=== PATIENT | male | born 1970 | race Caucasian/White ===

== ENCOUNTER 2017-09-14 18:29 | Observation (INO) ==
[2017-09-14] MEDS ORDERED: SALINE FLUSH 10ml SYRINGE IVF PRN (18:56)
--- NOTE | 2017-09-14 18:56 | Emergency Department Report ---
General Adult HPI - General Chief complaint: Neuro Symptoms/Deficit Stated complaint: numbness right side, dizzy Time Seen by Provider: 09/14/17 18:49 Source: patient Mode of arrival: ambulatory Limitations: no limitations - History of Present Illness HPI narrative: 47-year-old male presents to the emergency department with the chief complaints of experiencing tingling at the corner of his right mouth, right hand , and right foot. He was exercising by lifting weights when he noted onset of symptoms at approximately 1820 today. He states that his symptoms have improved in nature since onset. He does not have any further tingling of the corner of his mouth and only has tingling in his right hand and right foot which has improved. He notes a mild dull generalized headache without radiation which was gradual in onset. He has no neck pain or focal deficit. He was at the [facility] when his symptoms began. Symptoms have improved in nature since onset. No other complaints or associated symptoms. - Related Data Home Medications Medication Instructions Recorded Confirmed Multivitamin [One Daily 1 each PO DAILY 09/14/17 09/14/17 Multivitamin] Ubidecarenone/Vit E Acet [Co Q-10 1 each PO DAILY 09/14/17 09/14/17 100 mg Softgel] Allergies Allergy/AdvReac Type Severity Reaction Status Date / Time No Known Allergies Allergy Verified 09/14/17 19:24 Review of Systems Constitutional: Denies: fever, chills Eyes: Denies: eye pain, vision change ENT: Denies: ear pain, throat pain Cardiovascular: Denies: chest pain, palpitations Respiratory: Denies: cough, dyspnea Gastrointestinal: Denies: abdominal pain, nausea, vomiting, diarrhea Genitourinary: Denies: urgency, dysuria Musculoskeletal: Denies: back pain, arthralgia Integumentary: Denies: erythema, rash Neurological: Reports: headache, paresthesias. Denies: weakness, numbness Psychiatric: Denies: anxiety, depression Endocrine: Denies: polydipsia, polyuria Hematological/Lymphatic: Denies: easy bruising, lymphadenopathy Allergic/Immunologic: Denies: facial swelling, urticaria PFSH Negative. Surgical History: Orthopedic surgery Family History: Dad - CVA - Social History Smoking status: Never smoker Substance use type: does not use Alcohol intake frequency: does not drink Physical Exam - Limitations Limitations: no limitations - General General appearance: alert, in no apparent distress - Normal Exams: Head:: Normocephalic without trauma Eyes:: Pupils are PERRLA w/ EOMI, No scleral icterus, irritation, or foreign bodies noted ENMT:: No facial trauma, nasal exudates, pharyngeal erythema, or exudates are noted Dental: No fractured, loose, or missing teeth noted Neck:: Full range of motion, without adenopathy, JVD, bruits or thyromegaly Chest/Respirations:: Clear all win, with good airflow, and symmetry bilaterally Cardiovascular:: Regular rate and rhythm, without murmur or gallop, Pulses 2+ all extremities, capillary refill, <2 seconds all extremities Abdomen:: Bowel sounds positive, soft, non-tender, non-distended, no hepatosplenomegaly, masses or bruits noted Lymphatic:: No lymphadenopathy, or lymphedema noted Musculoskeletal:: No tenderness, or deformity noted, good range of motion, all extremities Integumentary:: No rashes, hives, or bruising noted, hair and nails, without abnormality Neurological:: Patient is alert (Alert and oriented x 3. CN 2-12 intact. normal strength. normal speech. normal motor. normal coordination. normal gait. absent babinski bilat. reflexes 2/4 in all ext. no focal deficit. normal neurological exam. ), and oriented, cranial nerves, motor/sensory/cerebellar, exams w/o gross deficits, to observation Psychiatric:: Patient exhibits, appropriate attention, emotion and affect Medical Decision Making - [facility] Narrative Medical decision making narrative: Labs / Imaging were discussed in detail with the patient and family and questions were answered. Patient has an unremarkable evaluation in the ED but is not comfortable being discharged home to follow up with his PCP. He is given 324mg of ASA po x 1 in the ED. His symptoms have resolved and he remains asymptomatic in the ED during his stay. Patient is discussed with Dr. Marco A Suarez who agrees to accept the patient to his service for further evaluation and treatment. Patient and family are in agreement with the current plan of management. No further orders from accepting physician who is in agreement with the current plan of management. Patient was not a candidate for TPA therapy due to a low NIH and rapidly improving to resolving symptoms. Also no confirmed ischemic CVA is present. - Differential Diagnosis TIA, CVA, Metabolic disorder, UTI - Lab Data Result diagrams: 09/14/17 19:19 09/14/17 19:19 - Radiology Data CT HEAD - Negative. CXR - No acute processes. - EKG Data EKG #1 EKG results narrative: Sinus rhythm. 81 bpm. No STEMI. Disposition Clinical Impression: Numbness and tingling of right upper and lower extremity Disposition: 02 To [facility] Condition: Improved Time of Disposition: 21:00 - Seen By: physician
--- OUTSIDE RECORDS SUMMARY | 2017-09-14 19:16 | External Medical Summary ---
:1970 Author Organization [employer] Care Team Providers Name Role Phone Yenifer Kelly Provider Role Unavailable Allergies, Adverse Reactions, Alerts Substance Reaction Event Type N.K.D.A. Info Not Available Non Drug Allergy Problems Problem Type Condition Code Onset Dates Condition Status Problem Hypertension I10 Active Assessment Chest pain R07.9 Active Problem Hyperlipemia E78.5 Active Assessment Palpitation R00.2 Active Assessment Hyperlipemia E78.5 Active Assessment Hypertension I10 Active Medications Medication Code System Code Instructions Start End Date Status Dosage Date Aspirin [facility] 26447-96 81 MG Orally 1 tablet 805 Once a day Imdur [facility] 75214-88 30 MG Orally Apr 16, / tablet 74-01 Once a day 2015 (15mg) Metoprolol [facility] 80607-12 25 MG Orally 1 tablet Tartrate 18-01 Twice a day Nitrostat [facility] 79889-45 0.4 MG not defined 18-13 Sublingual as directed Vital Signs Date/Time: Apr 16, 2015 BMI 30.65 Index Weight 226 lbs Height 6'2 in Cardiac Monitoring Heart Rate 95 /min Oximetry 98 % Blood Pressure Diastolic 90 mm Hg Blood Pressure Systolic 160 mm Hg Results No Known Results Summary Purpose [employer] Submission
--- OUTSIDE RECORDS SUMMARY | 2017-09-14 19:16 | External Medical Summary ---
:1970 Author Organization [employer] Care Team Providers Name Role Phone Yenifer Kelly Provider Role Unavailable Allergies No Known Allergies Problems Problem Type Condition Code Onset Dates Condition Status Problem Hypertension I10 Active Problem Hyperlipemia E78.5 Active Medications No Known Medications Results No Known Results Summary Purpose [employer] Submission
--- OUTSIDE RECORDS SUMMARY | 2017-09-14 19:16 | External Medical Summary ---
:1970 Author Organization [employer] Care Team Providers Name Role Phone Yenifer Kelly Provider Role Unavailable Allergies No Known Allergies Problems No Known Problems Medications No Known Medications Results No Known Results Summary Purpose [employer] Submission
[2017-09-14] MEDS ORDERED: ASPIRIN 81 MG CHEWABLE TABLET PO ONE (21:26)
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
[2017-09-14] MEDS ORDERED: ONDANSETRON 4 MG/2 ML INJECTION IVP PRN (22:25)
[2017-09-14] MEDS ORDERED: IBUPROFEN 600 MG TABLET PO PRN (22:25)
[2017-09-14] MEDS ORDERED: ACETAMINOPHEN 325 MG TABLET PO PRN (22:25)
[2017-09-14 22:39] VITALS: BMI 31.2
--- NOTE | 2017-09-15 08:20 | XRay Report ---
Indication: tingling ext. PROCEDURE: XR chest 1V: Encounter: Initial Comparison: March 31, 2015 FINDINGS: The lungs are clear. There is no abnormal airspace opacity, pleural effusion or pneumothorax identified. The heart size, pulmonary vasculature and mediastinum are within normal limits. No significant skeletal abnormality is seen. IMPRESSION: No acute cardiopulmonary abnormality. .
--- NOTE | 2017-09-15 08:21 | CT Scan Report ---
Indication: ARTEAGA, Tingling RUE/RLE PROCEDURE: CT head/brain wo con: Encounter: Initial Comparison: None Technique: Axial CT images through the head were performed without contrast. Iterative Reconstruction dose reducing technique was utilized. FINDINGS: The ventricles are of normal size, shape, and configuration for the patient's age. There is no evidence of acute intracranial hemorrhage, midline displacement, or mass effect. The CT attenuation of the brain parenchyma is normal within the cerebellum, brain stem, and cerebral hemispheres. The tympanic cavities and mastoid air cells are free of appreciable disease. There are no definite fractures of the skull base, calvarium, or visualized portion of the midface. IMPRESSION: No CT evidence of acute intracranial abnormality. There is a preliminary report by [facility]. .
[2017-09-15] MEDS ORDERED: ASPIRIN 325 MG TABLET PO SCH (09:00)
[2017-09-15] MEDS ORDERED: MULTI-VITAMIN PLAIN TABLET PO SCH (09:00)
[2017-09-15] MEDS ORDERED: COENZYME Q-10 200mg TABLET PO SCH (09:00)
--- NOTE | 2017-09-15 09:47 | Ultrasound Report ---
Indication: Concern for possible L sided tia, numbness, paresthesias R PROCEDURE: US carotid doppler BI: TECHNIQUE: Grayscale, color and duplex Doppler imaging was performed of the carotid systems bilaterally. Velocities in cm/sec - validated velocity measurements with angiographic measurements, velocity criteria are extrapolated from diameter data as defined by the Society of Radiologists in Ultrasound Consensus Conference Radiology 2003; 229;340-346. RIGHT: PSV ICA 89.8 EDV ICA 32.7 PSV CCA 105 EDV CCA 18 PSV ECA 102 ICA Diameter reduction <20% (0.8-1.0)% LEFT: PSV ICA 91.5 EDV ICA 32.2 PSV CCA 123 EDV CCA 26.3 PSV ECA 93.7 ICA Diameter reduction <20% (0.8-1.0)% The right vertebral artery is patent with cephalic flow. The left vertebral artery is patent with cephalic flow. IMPRESSION: No hemodynamically significant carotid stenosis. .
[2017-09-15] MEDS ORDERED: SALINE FLUSH 10ml SYRINGE ONE (12:12)
[2017-09-15] MEDS ORDERED: GADOTERIDOL 279.3mg/ml - 5ml vial IVP ONE (12:13)
[2017-09-15 15:21] VITALS: BP 132/89; RESP 18; TEMP 96.7; O2SAT 97
--- NOTE | 2017-09-15 16:35 | Magnetic Resonance Report ---
Indication: R sided numbness, possible TIA thank you PROCEDURE: MR head/brain/ang head wo/w: Encounter: Initial Comparison: Head CT from yesterday Technique: Multiplanar, multisequence, MR imaging of the head with and without contrast was acquired. MRA imaging of the head without contrast was acquired. Maximum intensity projection (MIP) reformatted images were produced. 3-dimensional volume rendered imaging of the [place] of [place] was performed by the technologist on a dedicated workstation. Contrast: 22 mL of ProHance Findings: MRI head: The ventricles are of normal size, shape, and contour for the patient's age. There is a small nonspecific T2/flair white matter hyperintensity in the left frontal subcortical white matter anteriorly. No additional white matter lesions are seen. This does not enhance. The brain stem, cerebellum, and cerebral hemispheres otherwise have a normal morphologic appearance as well as MR signal intensity on all pulse sequences. Following intravenous administration of contrast, no areas of abnormal enhancement are evident. There are no areas of restricted diffusion on diffusion weighted imaging to suggest an acute infarct. There is no evidence of an intracranial mass lesion, intracranial hemorrhage, or hydrocephalus. The visualized portions of the orbits, calvarium, paranasal sinuses, and skull base demonstrate no significant abnormality. MRA head: The intracranial portions of the vertebral arteries, internal carotid arteries, and their major branches show no significant stenosis or other vascular anomaly. No aneurysms or vascular malformations are evident. Posterior communicating artery noted on the right. origin of the left posterior cerebral artery, a normal anatomic variant. Impression: 1. MRI head: Unremarkable MRI of the head for the patient's age with and without contrast. 2. MRA head: Normal exam .
--- NOTE | 2017-09-15 18:37 | Discharge Summary ---
Discharge Information Date of admission: 09/14/17 21:44 Anticipated date of discharge: 09/15/17 Attending Physician: Lorenzo Reynolds MD Primary care physician: Tree Mullins MD - Discharge Diagnosis (1) Numbness and tingling of right upper and lower extremity Status: Resolved (2) Hypertension Status: Acute (3) Hyperlipidemia Status: Acute - Radiology Radiology: = = = = = = = = = = = = = = = = = = = = = = = = = = = = = = = = = = = = = = = = = = = = = = = = = = = = = = = = = = = Date of Exam: 09/14/17 PROCEDURE: XR chest 1V: FINDINGS: The lungs are clear. There is no abnormal airspace opacity, pleural effusion or pneumothorax identified. The heart size, pulmonary vasculature and mediastinum are within normal limits. No significant skeletal abnormality is seen. IMPRESSION: No acute cardiopulmonary abnormality. = = = = = = = = = = = = = = = = = = = = = = = = = = = = = = = = = = = = = = = = = = = = = = = = = = = = = = = = = = = Date of Exam: 09/14/17 PROCEDURE: CT head/brain wo con: FINDINGS: The ventricles are of normal size, shape, and configuration for the patient's age. There is no evidence of acute intracranial hemorrhage, midline displacement, or mass effect. The CT attenuation of the brain parenchyma is normal within the cerebellum, brain stem, and cerebral hemispheres. The tympanic cavities and mastoid air cells are free of appreciable disease. There are no definite fractures of the skull base, calvarium, or visualized portion of the midface. IMPRESSION: No CT evidence of acute intracranial abnormality. = = = = = = = = = = = = = = = = = = = = = = = = = = = = = = = = = = = = = = = = = = = = = = = = = = = = = = = = = = = Date of Exam: 09/14/17 PROCEDURE: MR head/brain/ang head wo/w: Findings: MRI head: The ventricles are of normal size, shape, and contour for the patient' s age. There is a small nonspecific T2/flair white matter hyperintensity in the left frontal subcortical white matter anteriorly. No additional white matter lesions are seen. This does not enhance. The brain stem, cerebellum, and cerebral hemispheres otherwise have a normal morphologic appearance as well as MR signal intensity on all pulse sequences. Following intravenous administration of contrast, no areas of abnormal enhancement are evident. There are no areas of restricted diffusion on diffusion weighted imaging to suggest an acute infarct. There is no evidence of an intracranial mass lesion, intracranial hemorrhage, or hydrocephalus. The visualized portions of the orbits , calvarium, paranasal sinuses, and skull base demonstrate no significant abnormality. MRA head: The intracranial portions of the vertebral arteries, internal carotid arteries, and their major branches show no significant stenosis or other vascular anomaly. No aneurysms or vascular malformations are evident. Posterior communicating artery noted on the right. origin of the left posterior cerebral artery, a normal anatomic variant. Impression: 1. MRI head: Unremarkable MRI of the head for the patient's age with and without contrast. 2. MRA head: Normal exam = = = = = = = = = = = = = = = = = = = = = = = = = = = = = = = = = = = = = = = = = = = = = = = = = = = = = = = = = = = Date of Exam: 09/15/17 PROCEDURE: US carotid doppler BI: RIGHT: PSV ICA 89.8 EDV ICA 32.7 PSV CCA 105 EDV CCA 18 PSV ECA 102 ICA Diameter reduction <20% (0.8-1.0)% LEFT: PSV ICA 91.5 EDV ICA 32.2 PSV CCA 123 EDV CCA 26.3 PSV ECA 93.7 ICA Diameter reduction <20% (0.8-1.0)% The right vertebral artery is patent with cephalic flow. The left vertebral artery is patent with cephalic flow. IMPRESSION: No hemodynamically significant carotid stenosis. History of Present Illness HPI: Matias is a pleasant articulate 47M patient of Dr. Tree Mullins who relates that he was lifting weights this evening around 6:20p and developed the sensation of tingling sensation which began in his R fingers and hand. This was followed by numbness of his R hand and foot as he climbed the stairs from his basement in his gym. Later in the shower he noticed paresthesias around the R corner of his mouth. He paid attention to the fact that he had no facial droop, weakness , or loss of coordination. He had no changes in his speech or vision. Concerned given the fact that his father had suffered a large stroke in his early sixties, Matias presented to the ER. Some of the numbness persisted after his presentation to the ER, but symptoms have since completely resolved. CT brain and lab and EKG and VS were essentially WNL in the ER as documented and reviewed. He was given an aspirin in the ER. Due to his concerns especially considering his family history, he is placed in observation for further evaluation and management. Objective Vital signs: Temperature 96.7 F L 09/15/17 15:20 Pulse Rate 75 09/15/17 16:00 Respiratory Rate 18 09/15/17 15:20 Blood Pressure 132/89 09/15/17 15:20 Pulse Oximetry 97 09/15/17 15:20 Height/Weight/BMI: Height 1.88 m Weight 110 kg Body Mass Index 31.2 Hospital Course This is a general summary of the patient's hospital course. For more details refer to the complete medical record. Hospital course: Matias was admitted on September 14 for right-sided paresthesias. He underwent stroke workup including CT head, carotid Doppler, MRI, MRA of brain. These were negative. He also had an echocardiogram, which was pending at time of discharge. He reports that he has his lipids checked once a year and states that he was borderline requiring medication. During hospitalizations. His triglycerides were high at 255, total cholesterol was 234, LDL 149, VLDL 51, HDL 34. Would recommend a follow-up with Dr. Mullins regarding statin therapy. We discussed starting a daily baby aspirin for prevention as well as lifestyle changes including a heart healthy diet and exercise. His blood pressure remained under reasonable control while in the hospital. The patient verbalized an understanding and was dismissed home in stable condition. Discharge Plan - Discharge Disposition Discharge Date: 09/15/17 Disposition: 01 Discharged Home, Self-Care *Condition: Improved Reason For Visit (Visit label in EMR): Rt sided numbness - Discharge Medications *Discharge Medications: New Aspirin Chewable [ASA] 81 mg PO DAILY #60 tab.chew Continue Multivitamin [One Daily Multivitamin] 1 each PO DAILY Ubidecarenone/Vit E Acet [Co Q-10 100 mg Softgel] 1 each PO DAILY - Discharge Packet/Instructions *Diet: Heart healthy, low-sodium *Activity: No restrictions *Pain Management/Treatment: Not applicable *Wound Care: Not applicable Additional Instructions: Discuss starting statin therapy with Dr. Mullins *Expected Signs/Symptoms: No further neurologic symptoms expected *Notify Physician if: Recurrent strokelike symptoms, chest pain, difficulty breathing, passing out, altered mental status, or any new changes *During Business Hours Contact: Dr. Mullins's office *After Business Hours Contact: The on-call provider for Dr. Mullins *Pending Lab/Results: Follow up w/Provider (echocardiogram report is pending) - Referrals/Follow Up *Referrals/Follow Up: Tree Mullisn MD [Primary Care Provider] - 1 Week - Patient Handouts - Dismissal Complete Discharge Instructions are:: Complete Physician Narrative - Narrative Attestation Narrative: Date: 09/15/17 Time: 7120
[2017-09-15 19:56] VITALS: PULSE 80
--- NOTE | 2017-09-19 08:42 | Echocardiogram ---
DATE OF SERVICE: 09/15/2017 INDICATION TIA. TECHNICAL QUALITY Technically good 2-D, M-mode, Doppler echocardiographic images were submitted for interpretation. FINDINGS 1. CARDIAC CHAMBERS. All cardiac chamber measurements are normal. Aortic root diameter is normal. RV size and contractility appeared normal. 2. LEFT VENTRICLE. Analysis reveals borderline concentric LVH. Posterior wall measured 13 mm. Septal wall measured 12 mm. Wall motion analysis is normal. Systolic function is normal. EF measured 65%. Diastolic function parameters show E/E' ratio of 6.4, E/A ratio 0.8 suggestive of a degree of diastolic dysfunction. 3. VALVES. Aortic, mitral and tricuspid valve structure and motion appeared normal for age. Normal valve excursion. 4. DOPPLER. Shows trace regurgitation involving mitral, tricuspid and pulmonic valves, none of hemodynamic significance. Normal systolic PA pressure estimated at 27 mmHg. 5. Normal central venous pressure. 6. No evidence of pericardial effusion, intracardiac masses, thrombi, vegetations or shunts. 7. The patient is in sinus rhythm during the study. IMPRESSION 1. Normal LV systolic function, EF of 65%. 2. Mild concentric LVH. 3. Borderline criteria for mild diastolic dysfunction. 4. No significant valvular dysfunction. 5. No evidence of pericardial effusion, intracardiac masses, thrombi, vegetations or shunts. 6. The patient is in normal sinus rhythm during the study. 7. Bubble study was not performed. If a cardiac source for embolus is clinically likely, please consider transesophageal echocardiogram. MTDD
== END 2017-09-15 19:50 | disposition home or self-care (01) ==
LOC: ED 18:29 → EDHOLD 18:29 → SUATTDRO 21:44 → MED 22:10
PROVIDERS: ADMIT Internal Medicine; ATTEND Internal Medicine